=== PATIENT | male | born 1960 | race Two or more races ===

== ENCOUNTER 2018-04-17 16:06 | Emergency (ER) | payer OTHER ==
[~2018-04-17] VITALS: Ht 182.9 cm; Wt 114.3 kg
[2018-04-17] MEDS ORDERED: VALSARTAN160 MG (16:18)
== END 2018-04-17 17:50 | disposition home or self-care (01) ==
LOC: ER 16:06
DX: S90.111A Contusion of right great toe without damage to nail, initial encounter (principal); X50.0XXA Overexertion from strenuous movement or load, initial encounter; Y93.89 Activity, other specified; Y92.832 Beach as the place of occurrence of the external cause; Y99.8 Other external cause status